=== PATIENT | male | born 1950 | race Caucasian/White ===

== ENCOUNTER → 2016-05-26 | Outpatient (CLI) | payer OTHER, BC ==
[~2016-05-26] MED LIST: ARNICA TOPICAL GEL 1.5OZ TUBE. TP ONE; CEPHALEXIN 250 MG CAPSULE. ONE; DIAZEPAM 10 MG TABLET. ONE; IV NORMAL SALINE 1000ML BAG 1,000 ML ONE; LIDOCAINE 1%/EPI 1:100,000 20 ML VIAL. ONE; SODIUM BICARBONATE 50 MEQ/50 ML VIAL. ONE
== END | disposition home or self-care (01) ==
LOC: PCVCINTER 07:15
PROVIDERS: ATTEND Nuclear Medicine Nuclear Cardiology
DX: I83.11 Varicose veins of right lower extremity with inflammation (principal); M79.89 Other specified soft tissue disorders
CPT/HCPCS: 36478; 37765; C1751; C1769; C1894; J3490; J7030

== ENCOUNTER → 2016-06-17 | Outpatient (CLI) | payer OTHER, BC | END | disposition home or self-care (01) | LOC: PCVCINTER 07:19 | PROVIDERS: ATTEND Nuclear Medicine Nuclear Cardiology | DX: I87.322 Chronic venous hypertension (idiopathic) with inflammation of left lower extremity (principal); I87.2 Venous insufficiency (chronic) (peripheral); M79.89 Other specified soft tissue disorders | CPT/HCPCS: 36478; C1751; C1769; C1894; J3490; J7030 ==

== ENCOUNTER → 2016-07-11 | Outpatient (CLI) | payer OTHER, BC | LOC: PCVCINTER 07:21 | PROVIDERS: ATTEND Nuclear Medicine Nuclear Cardiology | DX: I87.2 Venous insufficiency (chronic) (peripheral) (principal); I87.322 Chronic venous hypertension (idiopathic) with inflammation of left lower extremity; I48.91 Unspecified atrial fibrillation | CPT/HCPCS: 36478; C1751; C1769; C1894; J3490; J7030 ==

== ENCOUNTER → 2016-10-23 | Outpatient (CLI) | payer OTHER, BC ==
--- NOTE | 2016-10-23 17:14 | PCVCIMAG ---
EXAM: BILATERAL SUPERFICIAL VENOUS DUPLEX INDICATION: Venous insufficiency. Previous laser vein ablation procedures. FINDINGS: Right leg: No thrombus in the common femoral, main femoral, or popliteal veins. These veins are compressible. Right Great Saphenous Vein: Occlusion throughout the length of the right great saphenous vein consistent with satisfactory prior ablation procedure. Right Small Saphenous Vein: At the saphenopopliteal junction the diameter is 3.0 mm, and in the calf it is 2.5 mm. There is not significant venous insufficiency/reflux throughout. Venous insufficiency/reflux duration is 0 seconds. There is not a cranial extension present. Left leg: No thrombus in the common femoral, main femoral, or popliteal veins. These veins are compressible. Left Great Saphenous Vein: Occlusion throughout the length of the left great saphenous vein consistent with satisfactory prior ablation procedure. Left Small Saphenous Vein: Occlusion throughout the length of the left small saphenous vein consistent with satisfactory prior ablation procedure. IMPRESSION: Satisfactory post ablation change in the right great saphenous vein. Right Small Saphenous Vein: No significant venous insufficiency/reflux is present as noted above. Satisfactory post ablation change in the left great saphenous vein. Satisfactory post ablation change in the left small saphenous vein. LOC:[id number]
== END | disposition home or self-care (01) ==
LOC: PCVCCLINIC 14:40
PROVIDERS: ATTEND Nuclear Medicine Nuclear Cardiology
DX: I82.493 Acute embolism and thrombosis of other specified deep vein of lower extremity, bilateral (principal); I10 Essential (primary) hypertension; I48.91 Unspecified atrial fibrillation; I87.2 Venous insufficiency (chronic) (peripheral); Z79.82 Long term (current) use of aspirin
CPT/HCPCS: 93970; G0463